=== PATIENT | female | born 1950 | race Hispanic/Latino ===

== ENCOUNTER 2021-09-25 14:19 | Inpatient (IN) | payer MEDICARE ==
[2021-09-25] VITALS (9 sets, daily range): BP systolic 98–149; BP diastolic 46–70
[~2021-09-25] VITALS: Ht 157.5 cm; Wt 73.5 kg
[2021-09-25 15:27] LABS: BASOPHILS % (AUTO) 0.6 % (0.0-5.0); HEMATOCRIT 41.2 % (36-48); LYMPHOCYTES % (AUTO) 33.4 % (21.0-51.0); MEAN CORPUSCULAR HGB CONC 32.8 g/dL (32.0-36.0); MEAN CORPUSCULAR VOLUME 88.4 fL (79-99); MONOCYTES % (AUTO) 8.7 % (3.0-13.0); NEUTROPHILS % (AUTO) 56.1 % (40.0-77.0); PLATELET COUNT (AUTO) 216 K/uL (130-400); RED BLOOD CELL COUNT(AUTO) 4.66 MIL/uL (4.00-5.50); RED CELL DISTRIBUTION WIDTH 12.1 % (11.0-15.5)
[2021-09-25 15:40] LABS: HEMOGLOBIN A1C 6.5 % (4.0-6.0)
[2021-09-25 15:42] LABS: INR 0.96 (0.85-1.15); PROTHROMBIN TIME 10.5 SEC (9.6-11.6)
[2021-09-25 15:43] LABS: PARTIAL THROMBOPLASTIN TIME 25.9 SEC (26.3-35.5)
[2021-09-25 15:51] LABS: CREATININE 0.5 mg/dL (0.5-1.5); POTASSIUM 3.9 mmol/L (3.5-5.1)
[2021-09-25 15:56] LABS: ALBUMIN 4.1 g/dL (3.5-5.0); BILIRUBIN,TOTAL 0.5 mg/dL (0.2-1.0); TOTAL PROTEIN, SERUM 7.9 g/dL (6.0-8.3)
[2021-09-25] MEDS ORDERED: NITR0.4T50 SL ×2 (16:51→19:28)
[2021-09-25] MEDS ORDERED: HYDR-3421 PO (16:51)
[2021-09-25] MEDS ORDERED: EZET-86 PO (16:51)
[2021-09-25] MEDS ORDERED: SODIUM BICARB 50MEQ 50ML VIAL 50 ML ONE (17:42)
[2021-09-25] MEDS ORDERED: HEPARIN 10,000 UNIT/10ML (1,000 UNIT/ML) VIAL ONE (17:42)
[2021-09-25] MEDS ORDERED: NITROGLYCERIN 50MG VIAL ONE (17:42)
[2021-09-25] MEDS ORDERED: IOHEXOL-350 50ML VIAL IV ONE ×2 (17:42→19:21)
[2021-09-25] MEDS ORDERED: LIDOCAINE HCL 400MG/20ML VIAL ONE (17:43)
[2021-09-25] MEDS ORDERED: MIDAZOLAM HCL 1 MG/ML 2ML VIAL ONE (17:43)
[2021-09-25] MEDS ORDERED: FENTANYL CITRATE PF 50 MCG/1 ML 2ML VIAL ONE ×2 (17:43→18:26)
[2021-09-25] MEDS ORDERED: IOHEXOL-350 75 ML VIAL IV ONE ×2 (17:44→18:43)
[2021-09-25] MEDS ORDERED: NICARDIPINE 25MG INJ IV ONE (17:53)
[2021-09-25] MEDS ORDERED: DILT180C88 PO (19:28)
[2021-09-25] MEDS ORDERED: EZET-87 PO (19:28)
[2021-09-25] MEDS ORDERED: ISOS30TA92 PO (19:28)
[2021-09-25] MEDS ORDERED: AEC81 PO (19:28)
[2021-09-25] MEDS ORDERED: 0.9%NACL 1000ML 1,000 ML IV SCH (19:30)
[2021-09-25] MEDS ORDERED: DILTIAZEM 180MG SR CAP PO SCH (19:30)
[2021-09-25] MEDS ORDERED: NITROGLYCERIN 0.4 MG SL TAB SL PRN (19:30)
[2021-09-25] MEDS ORDERED: CLOP75TA32 PO (19:43)
[2021-09-25] MEDS ORDERED: CLOPIDOGREL 300MG TAB PO SCH (20:00)
[2021-09-25] MEDS ORDERED: ENOXAPARIN SODIUM 30 MG/0.3 ML SQ SCH (21:00)
[2021-09-25] MEDS ORDERED: ATORVASTATIN 40 MG TABLET PO SCH (21:00)
[2021-09-25] MEDS ORDERED: TICAGRELOR 90 MG TABLET PO SCH (21:00)
[2021-09-25] MEDS ORDERED: ISOSORBIDE MONO 30MG SR TAB PO SCH (21:00)
[2021-09-25] MEDS ORDERED: ACETAMINOPHEN 325 MG TAB PO PRN (21:30)
[2021-09-26 03:40] VITALS: BP 82/45
[2021-09-26 04:27] LABS: CREATININE 0.5 mg/dL (0.5-1.5); POTASSIUM 4.1 mmol/L (3.5-5.1)
[2021-09-26 04:54] VITALS: BP 101/55
[2021-09-26 07:00] VITALS: BP 108/55
[2021-09-26] MEDS ORDERED: CLOPIDOGREL 75MG TAB PO SCH (09:00)
[2021-09-26] MEDS ORDERED: ASPIRIN 81MG CHEW TAB PO SCH (09:00)
[2021-09-26 11:00] VITALS: BP 104/61
[2021-09-26] MEDS ORDERED: DILTIAZEM 180MG SR CAP PO SCH (16:00)
== END 2021-09-26 11:48 | disposition home or self-care (01) | DRG 287 ==
LOC: EDH 14:19 → EDHIP 14:20 → 2DH 16:10
PROVIDERS: ADMIT Hospitalist; ATTEND Hospitalist
PROC: 4A023N7 Measurement of Cardiac Sampling and Pressure, Left Heart, Percutaneous Approach (ICD-10-PCS; principal; 2021-09-25)
PROC: B2111ZZ Fluoroscopy of Multiple Coronary Arteries using Low Osmolar Contrast (ICD-10-PCS; 2021-09-25)
PROC: B2151ZZ Fluoroscopy of Left Heart using Low Osmolar Contrast (ICD-10-PCS; 2021-09-25)
DX: I25.110 Atherosclerotic heart disease of native coronary artery with unstable angina pectoris (principal); Z20.822 Contact with and (suspected) exposure to COVID-19; E11.9 Type 2 diabetes mellitus without complications; E78.5 Hyperlipidemia, unspecified; Z90.49 Acquired absence of other specified parts of digestive tract; I10 Essential (primary) hypertension; G47.00 Insomnia, unspecified
CPT/HCPCS: 36415; 71045; 80048; 80053; 80061; 82550; 83036; 84145; 84443; 84484; 85025; 85610; 85730; 87635; 93005; 93458; 99156; 99157; G0378; J1644; J1650; J2250; J3010; J3490; J7030; Q9967